=== PATIENT | female | born 1945 | race Caucasian/White ===

== ENCOUNTER 2021-06-21 14:58 | Emergency (ER) | payer MEDICARE, OTHER ==
[~2021-06-21 14:58] MED LIST: NORCO 5-325 TA1 EACH PO
[2021-06-21 16:05] LABS: BILIRUBIN NEGATIVE (NEGATIVE); BLOOD TRACE-INTACT Ery/uL (NEGATIVE); CLARITY CLEAR (CLEAR); COLOR YELLOW (YELLOW); GLUCOSE (U) NORMAL (NORMAL); LEUKOCYTES 1+ Leu/uL (NEGATIVE); NITRITE NEGATIVE (NEGATIVE); PROTEIN NEGATIVE (NEGATIVE); SPECIFIC GRAVITY 1.025 (1.001-1.030); UROBILINOGEN 0.2 mg/dL (0.2-1.0)
[2021-06-21 16:12] LABS: BACTERIA 1+; URINARY RBC RARE
[2021-06-21 16:14] LABS: BASOPHIL 0.4 % (0-2); EOSINOPHIL 1.7 % (0-7); HCT 40.1 % (37.0-47.0); HGB 12.7 g/dl (12.5-16.0); LYMPHOCYTE 25.3 % (15-48); MCH 29.1 pg (25.0-31.0); MCHC 31.7 g/dL (32.0-36.0); MCV 91.8 fL (78.0-100.0); MONOCYTE 6.9 % (0-12); MPV 9.9 fL (6.0-9.5); NEUTROPHIL 65.3 % (41-80); NRBC 0; PLT 269 K/uL (150-400); RBC 4.37 M/uL (4.20-5.40); RDW 14.1 % (11.5-14.0); WBC 7.6 K/uL (4.0-10.5)
[2021-06-21 16:29] LABS: ALBUMIN 3.9 g/dL (3.4-5.0); BILIRUBIN - TOTAL 0.3 mg/dL (0.2-1.0); BUN/CREAT RATIO (CALC) 14.6 RATIO; CREATININE 0.82 mg/dL (0.51-0.95); GLOBULIN (CALCULATION) 3.4 g/dL; POTASSIUM 3.5 mmol/L (3.5-5.1); TOTAL PROTEIN 7.3 g/dL (6.4-8.2)
[2021-06-21] MEDS ORDERED: CIPRO500 MG PO (18:05)
== END 2021-06-21 18:05 | disposition home or self-care (01) ==
LOC: FER 14:58
PROVIDERS: Emergency Medicine
DX: N39.0 Urinary tract infection, site not specified (principal); I10 Essential (primary) hypertension; F03.90 Unspecified dementia, unspecified severity, without behavioral disturbance, psychotic disturbance, mood disturbance, and anxiety; Z28.310 Unvaccinated for COVID-19
CPT/HCPCS: 36415; 80053; 81001; 85025; 87088; 99284; J7030